=== PATIENT | female | born 1990 | race Caucasian/White ===

== ENCOUNTER 2019-06-05 18:53 | Inpatient (IN) | payer OTHER, MEDICAID, SELFPAY ==
[2019-06-05] MEDS: NIFEdipine 10 MG CAPSULE PO ×4 (20:10→21:10)
[2019-06-05 20:58] LABS: Add Manual Diff / Slide Review NO; Basophils Absolute Auto 0 /uL (0-100); Basophils Percent Auto 0.3 % (0-2); Eosinophils Absolute Auto 100 /uL (0-450); Hematocrit 36.9 % (36-46); Hemoglobin 12.7 g/dL (12.0-16.0); Lymphocytes Absolute Auto 2500 /uL (1100-4500); Lymphocytes Percent Auto 21.2 % (25-40); Mean Corpuscular HGB Conc 34.4 % (30-36); Mean Corpuscular Hemoglobin 30.1 PG (26-34); Mean Corpuscular Volume 87.6 fL (80-100); Monocytes Absolute Auto 800 /uL (0-900); Monocytes Percent Auto 6.5 % (3-14); Neutrophils Absolute Auto 8500 /uL (1500-7000); Platelet Count 149 X10^3/uL (150-400); Red Blood Cell Count 4.21 X10^6/uL (4.0-5.2); Red Cell Distribution Width 12.3 % (11.6-14.8)
[2019-06-05 21:10] LABS: Alanine Aminotransferase 22 IU/L (9-52); Albumin 3.6 g/dL (3.5-5.0); Alkaline Phosphatase 143 U/L (38-126); Aspartate Aminotransferase 25 IU/L (14-36); BUN Creatinine Ratio 18.6 (6-22); Bilirubin Total 0.2 mg/dL (0.2-1.3); Blood Urea Nitrogen 13 mg/dL (7-17); Calcium 9.1 mg/dL (8.4-10.2); Carbon Dioxide 28 mmol/L (22-32); Chloride 101 mmol/L (98-107); Estimated Glomerular Filt Rate > 60.0 mL/min (>60); Globulin 3.7 g/dL (1.7-4.1); Glucose 64 mg/dL (70-100); HEMOLYSIS < 15 (0-50); Potassium 4.2 mmol/L (3.4-5.1); Sodium 136 mmol/L (137-145); Total Protein 7.3 g/dL (6.3-8.2)
[2019-06-05] MEDS: ZOLPIDEM 5 MG TABLET PO (22:22)
[2019-06-05 22:26] LABS: Urine Amphetamines Negative (Negative); Urine Barbiturates Negative (Negative); Urine Benzodiazepines Negative (Negative); Urine Cocaine Negative (Negative); Urine MDMA Negative (Negative); Urine Methadone Positive (Negative); Urine Methamphetamines Negative (Negative); Urine Morphine/Opi cutoff 2000 Negative (Negative); Urine Oxycodone Negative (Negative); Urine Phencyclidine Negative (Negative); Urine Tetrahydrocannabinol Negative (Negative); Urine Tricyclic Antidepressant Negative (Negative)
[2019-06-06] VITALS (7 sets, daily range): BP systolic 103–129; BP diastolic 62–77; PULSE 93–109; RESP 11–22; TEMP 36.5–37.6; O2SAT 93–97
[2019-06-06] MEDS: BETAMETHASONE 30 MG/5 ML MDV 12 MG IM (06:34)
[2019-06-06] MEDS: TERBUTALINE 1 MG/ML VIAL 0.25 MG SUBCUT (06:35)
[2019-06-06] MEDS: MORPHINE 10 MG/ML INJ IM (06:50)
--- NOTE | 2019-06-06 07:13 | P.HPOB_ITS ---
OB HPI Date/Time Date of admission: 06/06/19 Date Patient Seen: 06/06/19 Time Patient Seen: 07:12 History of Present Condition Chief complaint: Obs : 2 Para: 1 Estimated Date of Delivery: 08/02/19 Estimated Gestational Age (weeks): 31 Narrative: Jaqui Kerns is a 29 year old female two para one para one addicted on methadone. Patient had one visit in November which time an SANTIAGO was established by 1st trimester ultrasound as being the 02 of August. Patient is had perhaps one additional visit at the [facility] in [place] and one visit at the methadone clinic for the [facility]. The patient has relapsed and is also now on heroin. The patient presented with contractions and was admitted for evaluation. The position confirmed by ultrasound is a breech presentation. Initial examination showed the patient to be closed and posterior. The patient then awoke with a bloody discharge. Indications Operative indications ( section): malpresentation (Breech presentation) Other reason(s) for admission: Heroin addiction History of Present care: none Dating criteria: LMP confirmed by 1st trimester US Ultrasounds: normal 1st trimester US and normal mid trimester US Obstetrical complications: labor Medical complications: other (Drug addiction) Narrative: Patient is a heroin addict on off suboxone and methadone therapy. She has recently relapsed and is back on her own Prior (ies) History: Premature labor and premature delivery of [facility] because of drug use Evaluation Evaluation Laboratory results: Laboratory Tests 06/05/19 06/05/19 06/05/19 20:30 20:50 20:50 WBC 12.0 H RBC 4.21 Hgb 12.7 Hct 36.9 MCV 87.6 MCH 30.1 MCHC 34.4 RDW 12.3 Plt Count 149 L Neut % (Auto) 71.0 Lymph % (Auto) 21.2 L [place] % (Auto) 6.5 Eos % (Auto) 1.0 L Baso % (Auto) 0.3 Neut # (Auto) 8500 H Lymph # (Auto) 2500 [place] # (Auto) 800 Eos # (Auto) 100 Baso # (Auto) 0 Sodium 136 L Potassium 4.2 Chloride 101 Carbon Dioxide 28 BUN 13 Creatinine 0.70 Estimated GFR > 60.0 BUN/Creatinine Ratio 18.6 Glucose 64 L Calcium 9.1 Total Bilirubin 0.2 AST 25 ALT 22 Alkaline Phosphatase 143 H Total Protein 7.3 Albumin 3.6 Globulin 3.7 Albumin/Globulin Ratio 1.0 Urine Opiates Screen Negative Ur Oxycodone Screen Negative Urine Methadone Screen Positive H Ur Barbiturates Screen Negative U Tricyclic Antidepress Negative Ur Phencyclidine Scrn Negative Ur Amphetamines Screen Negative U Methamphetamines Scrn Negative Ur MDMA Scrn (Ecstasy) Negative U Benzodiazepines Scrn Negative Urine Cocaine Screen Negative U Marijuana (THC) Screen Negative Review of Systems Review of Systems All systems reviewed & are unremarkable except as noted in HPI and below Exam Const General: cooperative and healthy appearing [facility] Head: normal to inspection Ears: hearing grossly normal bilaterally Nose: external nose normal Face and sinus: normal facial exam Mouth: oral mucosae normal, lip normal, tongue normal and moist mucous membranes Teeth and gingiva: dentition normal Throat: posterior oropharynx normal Eyes General: appearance normal, both eyes and all related structures Neck Neck: normal visual inspection and full ROM Chest Chest: normal inspection of the chest and normal palpation of entire chest wall Breast inspection: normal inspection of the breasts and normal inspection of the axillae Breast Palpation: normal palpation of the breasts and normal palpation of the axillae Resp Effort & Inspection: normal respiratory effort Auscultation: clear to auscultation bilaterally Cardio Palpation: normal PMI Rate: regular rate Rhythm: regular rhythm Heart Sounds: S1 normal and S2 normal GI Inspection: normal to inspection Palpation: soft and no hepatosplenomegaly Percussion: normal to percussion Auscultation: normal bowel sounds OB/External & Speculum: external exam normal and bleeding Manual OB Exam: dilated (Bulging membranes), effaced fully and station high Presentation: double footling breech Estimated Weight (lbs): 3 Back/Spine/Pelvis Thoracic/Lumbar Spine: thoracic and lumbar spine normal to inspection Skin General: no rashes or lesions noted Neuro General: alert, oriented x3, tone normal and moves all extremities Cognition: normal cognition Speech: speech normal Gait: normal gait Motor: muscle tone normal throughout Sensory Exam: no sensory deficits noted Extrem General: normal to inspection, normal exam except as noted and other (Limited IV access secondary to vein scarring secondary to drug) Psych Appearance: grossly normal and well kempt Mental Status: mental status grossly normal Speech and Movement: speech and movement normal Objective Labs Result Diagrams: 06/05/19 20:50 07/12/19 20:50 Labs: Laboratory Results - last 24 hr 06/05/19 06/05/19 06/05/19 20:30 20:50 20:50 WBC 12.0 H RBC 4.21 Hgb 12.7 Hct 36.9 MCV 87.6 MCH 30.1 MCHC 34.4 RDW 12.3 Plt Count 149 L Neut % (Auto) 71.0 Lymph % (Auto) 21.2 L [place] % (Auto) 6.5 Eos % (Auto) 1.0 L Baso % (Auto) 0.3 Neut # (Auto) 8500 H Lymph # (Auto) 2500 [place] # (Auto) 800 Eos # (Auto) 100 Baso # (Auto) 0 Sodium 136 L Potassium 4.2 Chloride 101 Carbon Dioxide 28 BUN 13 Creatinine 0.70 Estimated GFR > 60.0 BUN/Creatinine Ratio 18.6 Glucose 64 L Calcium 9.1 Total Bilirubin 0.2 AST 25 ALT 22 Alkaline Phosphatase 143 H Total Protein 7.3 Albumin 3.6 Globulin 3.7 Albumin/Globulin Ratio 1.0 Urine Opiates Screen Negative Ur Oxycodone Screen Negative Urine Methadone Screen Positive H Ur Barbiturates Screen Negative U Tricyclic Antidepress Negative Ur Phencyclidine Scrn Negative Ur Amphetamines Screen Negative U Methamphetamines Scrn Negative Ur MDMA Scrn (Ecstasy) Negative U Benzodiazepines Scrn Negative Urine Cocaine Screen Negative U Marijuana (THC) Screen Negative Assessment and Plan Assessment and Plan Assessment and Plan narrative: 31 week intrauterine Heroin addiction Active labor with bulging membranes [place] breech presentation Plan: Transfer team from [facility] - Primary section Comment: The patient is received nifedipine protocol. There was no IV access. Patient received subcu terbutaline. Patient received IM betamethasone. Anesthesiologist was called place an IV.
[2019-06-06] MEDS: LACTATED RINGERS 1,000 ML 1000 ML IV (08:00)
[2019-06-06] MEDS: METHADONE 10 MG TABLET 145 MG PO (08:03)
[2019-06-06] MEDS: MAGNESIUM SULFATE 4 GM/100 ML PIGGYBACK IV (08:10)
[2019-06-06] MEDS: LACTATED RINGERS 1,000 ML 125 ML IV (08:39)
[2019-06-06] MEDS: CEFOTETAN 2 GM/50 ML PIGGYBACK IV (08:40)
[2019-06-06 08:48] LABS: Add Manual Diff / Slide Review NO; Basophils Absolute Auto 0 /uL (0-100); Basophils Percent Auto 0.1 % (0-2); Eosinophils Absolute Auto 0 /uL (0-450); Eosinophils Percent Auto 0.1 % (2-4); Hematocrit 34.8 % (36-46); Hemoglobin 11.9 g/dL (12.0-16.0); Lymphocytes Absolute Auto 1000 /uL (1100-4500); Lymphocytes Percent Auto 7.7 % (25-40); Mean Corpuscular HGB Conc 34.2 % (30-36); Mean Corpuscular Volume 87.6 fL (80-100); Monocytes Absolute Auto 300 /uL (0-900); Monocytes Percent Auto 2.2 % (3-14); Neutrophils Absolute Auto 11900 /uL (1500-7000); Neutrophils Percent Auto 89.9 % (50-75); Platelet Count 110 X10^3/uL (150-400); Red Blood Cell Count 3.97 X10^6/uL (4.0-5.2); Red Cell Distribution Width 12.3 % (11.6-14.8); White Blood Cell Count 13.2 X10^3/uL (4.5-11.0)
[2019-06-06 09:41] LABS: Hepatitis B Surface Antigen NEGATIVE s/c (NEGATIVE); Rubella Antibody IgG 12.8 IU/mL (>15)
--- NOTE | 2019-06-06 09:44 | SUR.OPER ---
Supine on padded OR bed, head on pillow, arms secured on padded arm boards at <90 degrees abduction, legs uncrossed, safety belt at thigh, tape over blanket over lower legs.
--- NOTE | 2019-06-06 10:09 | PM.GYNOP.1 ---
Operative Date/Time/Diagnoses Date of procedure: 06/06/19 Time of procedure: 10:09 Pre-op diagnosis: 31 week intrauterine Premature labor Breech presentation History of prior section Post-op diagnosis: same Procedure: Procedures Operation Date: 06/06/19 07:35 <No data on this case meets the specified criteria> Indications: 31 week intrauterine Breech presentation Premature labor History of prior section Surgeon: Kuldip Ngo Client Care Representative: Yelena Addison Anesthesia Type: Spinal Operative Notes Findings: Ayo breech presentation Evidence of abruption Membranes intact Closure Type: primary Specimen(s): none Estimated blood loss (mL): 500 Blood products transfused: none Procedure in detail: The patient was placed supine upon the operating table and draped repaired in the usual fashion. Transverse incision was made through the old scar. The subcutaneous tissue was incised to the fascia. The fascia was incised with a sharp knife transversely in each direction. The median raphe was incised. This was widened by blunt finger dissection. Peritoneum was picked up and incised and and widened laterally.. Bladder blade was set in place. The peritoneum over the lower uterine segment was picked up and incised laterally. The bladder was taken down and the bladder blade replaced. Transverse scoring incision was made across the lower uterine segment and perforating incision was made centrally. Large numbers of blood clots were obtained at this time. The membranes were intact. 2 ft were presenting. These were grasped the membranes were ruptured. The was delivered to the umbilicus. The arms were swept down. The head however was trapped in the upper segment of the uterus. An approximately 6 cm long T incision was then made. And the head was delivered. The baby was delivered to the resuscitation team from [facility]. Cord blood was obtained. Cord gases unfortunately were not obtained. The placenta was delivered manually without difficulty. Cord had three vessels. All membranes are massage from the endometrial cavity. The 6 cm vertical incision was closed in two layer technique with 1. Chromic suture. The uterine incision was then closed using a two layer technique an imbricating fashion with 1. Chromic suture. No bleeding points were seen. Visceral peritoneum was closed with running two 0 chromic suture. Tubes and ovaries appeared to be normal. The parietal perineum was closed with running two 0 chromic suture. The area was copiously irrigated. The fascia was closed with interrupted 1. Vicryl sutures on each pyramidalis muscle. Fascia was then closed with two 1. Vicryl sutures. Subcutaneous tissue was copiously irrigated. The subcutaneous tissue was closed in two layers. The 1st layer was closed with interrupted three 0 Vicryl suture. 2nd layer was closed with a running three 0 Vicryl suture in a horizontal mattress stitch. The skin was further approximated with Steri-Strips. At the end of the procedure the wound was dry. The urine was clear. Patient was taken to the recovery room in satisfactory condition. Complications: none Post-operative Condition: stable Disposition: PACU Plan for aftercare: Labor and delivery
--- NOTE | 2019-06-06 10:17 | SUR.OPER ---
Pt arrived with paris in place. NICU team arranged for . Time of was 0920. FHT were 120's. Male born; oxygen saturation in the 80's from time of to departure from OR. NICU team bagging baby.
--- NOTE | 2019-06-06 10:41 | SUR.PHASEI ---
PT TO CENTER,HAND OFF OF CARE TO ROSEMARY GUAJARDO
[2019-06-06] MEDS: LACTATED RINGERS 1,000 ML 100 ML IV ×2 (12:00→20:26)
[2019-06-06] MEDS: OXYCODONE/ACETAMINOPHEN 5/325 TABLET 2 TAB PO (20:23)
[2019-06-06] MEDS: KETOROLAC 30 MG/ML VIAL IV (20:24)
[2019-06-07] MEDS: KETOROLAC 30 MG/ML VIAL IV ×3 (02:07→14:10)
[2019-06-07 05:34] LABS: Hematocrit 31.2 % (36-46); Hemoglobin 10.9 g/dL (12.0-16.0)
--- NOTE | 2019-06-07 09:13 | PM.OBPN.1 ---
Subjective - OB Patient comments: no complaints and pain well controlled [place] baby status: doing well [place] feeding status: other (CPS baby) Narrative: Patient status post emergency section for premature labor history of prior section, breech presentation, and abruption. The transport team was here at time of section and the baby was transported to the [place] NICU. We have not checked on the condition of the baby this morning. Mother is doing well. She remains afebrile stable vital signs. Her IV is been removed. Her Bobo catheter has been removed and she is voiding. She is taking p.o. well. Lochia is moderate. She is ambulating well. Date Patient Seen: 06/07/19 Time Patient Seen: 09:14 Interval history: Please see above Exam Vital Signs (past 8 hours): Oxygen Delivery Method Room Air Narrative Exam Narrative: Fundus is U minus four Incision looks fine Lochia scant Objective Labs Result Diagrams: 06/07/19 05:09 06/05/19 20:50 Labs: Laboratory Results - last 24 hr 06/06/19 06/06/19 06/07/19 08:15 08:15 05:09 Hgb 10.9 L Hct 31.2 L Hep Bs Antigen Negative Rubella Antibody 12.8 L Blood Type O Positive Antibody Screen Negative Assessment & Plan Plan day: 1 plan OB: routine postop care Comments: Doing well Time Spent With Patient Total time spent is greater than 50% in coordination of care (as documented) at patient's floor/unit and/or counseling patient: less than 15 minutes
[2019-06-07] MEDS: METHADONE 10 MG TABLET 145 MG PO (09:39)
[2019-06-07 10:20] LABS: Add Manual Diff / Slide Review NO; Basophils Absolute Auto 100 /uL (0-100); Basophils Percent Auto 0.4 % (0-2); Eosinophils Absolute Auto 0 /uL (0-450); Eosinophils Percent Auto 0.1 % (2-4); Hematocrit 33.5 % (36-46); Hemoglobin 11.4 g/dL (12.0-16.0); Lymphocytes Absolute Auto 1700 /uL (1100-4500); Lymphocytes Percent Auto 10.5 % (25-40); Mean Corpuscular HGB Conc 34.1 % (30-36); Mean Corpuscular Hemoglobin 30.2 PG (26-34); Mean Corpuscular Volume 88.5 fL (80-100); Monocytes Absolute Auto 900 /uL (0-900); Monocytes Percent Auto 5.4 % (3-14); Neutrophils Absolute Auto 13900 /uL (1500-7000); Neutrophils Percent Auto 83.6 % (50-75); Platelet Count 157 X10^3/uL (150-400); Red Blood Cell Count 3.78 X10^6/uL (4.0-5.2); Red Cell Distribution Width 12.7 % (11.6-14.8); White Blood Cell Count 16.6 X10^3/uL (4.5-11.0)
--- NOTE | 2019-06-07 14:39 | CM.SWNOTE ---
Social Work Note, Brief Assessment: Reviewed chart, mom comes in w/early labor Saturday 7.13.19, c section performed yesterday and baby shipped to [facility] NICU d/t breech presentation, minimal care, current methadone use w/ admitted relapse now heroin use. Met w/mom Jaqui this afternoon, explained SW role. Mom is hopeful she will be able to take baby home from [place] when medically cleared. FOB is now at [facility]. Mom reports she goes to [facility] to get her daily dose of Methadone and sees a counselor there weekly. She plans to also attend classes because she is not working currently. Jaqui understands that she will need to work w/the social work team at [facility] to discuss safe planning for baby. When asked why baby had to get shipped? Jaqui says she was premature. Jaqui denies heroin use and states her last use was one time and it was in November 2018. 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 She feels she has good access to food, clothing, transportation and knows how to access [place]. She denies the need for resources from this [facility]. Jaqui has a 14 month old, Lencho, in CPS custody/foster care that she sees every /, she hopes to get her back soon. CPS SWer is Gertrude Valadez P# [phone]. According to chart review, mom and baby were shipped from to for delivery of Lencho. Updated Dr Ngo briefly w/ above. P: DC home w/ FOB upon medical clearance, likely Saturday. F/u w/[facility] SW team re: safe DC planning w/CPS for new baby. Milagros Tolbert, PARTITION NOTCHER
--- NOTE | 2019-06-08 07:39 | P.DS_ITS ---
Discharge Providers Date of admission: 06/05/19 18:53 Discharge Date: 06/08/19 Consults: 06/06/19 20:00 Consult to Digital Design Engineer Routine Comment: Discharge provider: Kuldip Ngo MD Summary Date Patient Seen: 06/08/19 Time Patient Seen: 07:36 Procedures: Spinal anesthesia Primary low segment section current type Hospital Course: Patient is a 29-year-old three para one AB1 who presented at 31 weeks of in active labor. Patient had a prior section and patient presented as a breech presentation. Patient has drug addicted on methadone and using heroin. transport services were called and on arrival the patient was taken to the operating room and underwent a repeat low segment section. She was delivered of a 4 lb 8 oz male infant who was intubated but who has subsequently done well. The section was uneventful. The estimated blood loss was 500 cc. Post delivery the patient has done well. She has been maintained on methadone. She remains afebrile stable vital signs and has been progressively element and ambulated. She is discharged home for follow-up in two weeks. Peripartum Data Delivery Method: Section complications: none Status at Discharge Cognitive/behavioral status at discharge: oriented Functional status at discharge: independent ambulation Overall status at discharge: patient is progressing back to baseline Time Spent with Patient Total time spent providing and/or coordinating discharge services: Less than 30 minutes Objective Labs Result Diagrams: 06/07/19 09:55 06/05/19 20:50 Labs: Laboratory Results - last 24 hr 06/07/19 09:55 WBC 16.6 H RBC 3.78 L Hgb 11.4 L Hct 33.5 L MCV 88.5 MCH 30.2 MCHC 34.1 RDW 12.7 Plt Count 157 Neut % (Auto) 83.6 H Lymph % (Auto) 10.5 L [place] % (Auto) 5.4 Eos % (Auto) 0.1 L Baso % (Auto) 0.4 Neut # (Auto) 46328 H Lymph # (Auto) 1700 [place] # (Auto) 900 Eos # (Auto) 0 Baso # (Auto) 100 Exam Vital Signs (past 8 hours): Oxygen Delivery Method Room Air Narrative Exam Narrative: Fundus U minus four Incision looks fine. Lochia scant Discharge Plan Discharge Plan Patient Disposition: Home Discharge Med Rec/Prescriptions Prescriptions: New ibuprofen 600 mg Tablet 600 mg PO Q6HR PRN (Reason: As Needed For Fever/Mild Pain) Qty: 20 RF: 0 Follow up/Referrals: Kuldip Ngo MD [Physician] - 06/22/19 Provider Discharge Instructions Diet: Diet as Tolerated Activity: Up ad leila, limit stair Skin/Wound/Dressing Care Report to your healthcare provider any signs of infection, such as:: chills, fever, increased pain, unusual drainage and unusual redness Discharge Data Attending Provider: Kuldip Ngo Admit Date/Time: 06/05/19 18:53
[2019-06-08] MEDS: METHADONE 10 MG TABLET 145 MG PO (09:04)
[2019-06-08 10:18] VITALS: BP 110/71; PULSE 80; RESP 17; TEMP 37.1
[2019-06-09 20:53] LABS: RPR Screen Nonreactive (Nonreactive)
== END 2019-06-08 11:50 | disposition home or self-care (01) | DRG 540 ==
PROC: 10D00Z1 Extraction of Products of Conception, Low, Open Approach (ICD-10-PCS; CPT 59514; principal; 2019-06-06 07:35)
DX: O99.324 Drug use complicating childbirth (principal); F11.229 Opioid dependence with intoxication, unspecified; O34.219 Maternal care for unspecified type scar from previous cesarean delivery; Z37.0 Single live birth; Z3A.31 31 weeks gestation of pregnancy; O32.8XX0 Maternal care for other malpresentation of fetus, not applicable or unspecified
CPT/HCPCS: 36415; 59050; 59514; 80053; 80055; 80305; 85014; 85018; 85025; 86850; 86900; 86901; 87522; 99222; 99238; G0379; J0702; J1885; J2270; J2274; J2405; J2590; J3475

== ENCOUNTER → 2019-10-13 13:04 | Outpatient (CLI) | payer OTHER, MEDICAID, SELFPAY ==
--- NOTE | 2019-10-13 13:06 | DI.RAD.S_ITS ---
PROCEDURE: XR CHEST 2V INDICATIONS: vapes, productive cough, r/o pneumonia/bronchitis TECHNIQUE: 2 views of the chest were acquired. COMPARISON: [facility], , CHEST 1 VIEW, 03/05/2018, 11:46. FINDINGS: Surgical changes and devices: None. Lungs and pleura: Lungs are clear. Resolution of previous large right pleural effusion. Mediastinum: Mediastinal contours are normal. Heart size is normal. Bones and chest wall: No suspicious bony abnormalities. Soft tissues appear unremarkable. IMPRESSION: No evidence acute pulmonary process. Dictated by: Aj Amezquita M.D. on 10/13/2019 at 14:21 Approved by: Aj Amezquita M.D. on 10/13/2019 at 14:21
== END ==
PROVIDERS: Visit Provider Physician Assistant
DX: J06.9 Acute upper respiratory infection, unspecified (principal); R05 Cough; F17.290 Nicotine dependence, other tobacco product, uncomplicated
CPT/HCPCS: 71046

== ENCOUNTER → 2019-10-29 13:00 | Outpatient (CLI) | payer OTHER, MEDICAID, SELFPAY ==
--- NOTE | 2019-10-29 13:03 | DI.RAD.S_ITS ---
PROCEDURE: XR CHEST 2V INDICATIONS: suspect R sided effusion TECHNIQUE: 2 views of the chest were acquired. COMPARISON: [facility], CHEST 1 VIEW, 03/05/2018, 11:46. [facility], CHEST 1 VIEW, 03/04/2018, 22:20. [facility], , XR CHEST 2V, 10/13/2019, 13:52. FINDINGS: Surgical changes and devices: None. Lungs and pleura: Blunting of the right costophrenic angle may be secondary to pleural scarring or trace pleural effusion. Lungs are clear. No pleural effusions or pneumothorax. Mediastinum: Mediastinal contours are normal. Heart size is normal. Bones and chest wall: No suspicious bony abnormalities. Soft tissues appear unremarkable. Previous partial resection of the posterior right fifth rib. IMPRESSION: Right pleural scarring or trace pleural effusion. Dictated by: Melinda Guardado M.D. on 10/29/2019 at 14:39 Approved by: Melinda Guardado M.D. on 10/29/2019 at 14:40
[2019-10-29 13:55] LABS: Add Manual Diff / Slide Review NO; Basophils Absolute Auto 0 /uL (0-100); Basophils Percent Auto 0.3 % (0-2); Eosinophils Absolute Auto 100 /uL (0-450); Eosinophils Percent Auto 1.3 % (2-4); Hematocrit 36.3 % (36-46); Hemoglobin 12.3 g/dL (12.0-16.0); Lymphocytes Absolute Auto 2000 /uL (1100-4500); Lymphocytes Percent Auto 29.1 % (25-40); Mean Corpuscular Hemoglobin 27.2 PG (26-34); Monocytes Absolute Auto 400 /uL (0-900); Monocytes Percent Auto 5.9 % (3-14); Neutrophils Absolute Auto 4400 /uL (1500-7000); Neutrophils Percent Auto 63.4 % (50-75); Platelet Count 154 X10^3/uL (150-400); Red Blood Cell Count 4.53 X10^6/uL (4.0-5.2); Red Cell Distribution Width 16.6 % (11.6-14.8); White Blood Cell Count 6.9 X10^3/uL (4.5-11.0)
[2019-10-29 14:06] LABS: D Dimer 675 ng/mL (<230)
[2019-10-29 14:27] LABS: B Type Natriuretic Peptide < 100 (<100)
== END ==
PROVIDERS: Visit Provider Physician Assistant
DX: R05 Cough (principal)
CPT/HCPCS: 36415; 71046; 83880; 85025; 85379

== ENCOUNTER 2019-10-29 13:41 | Emergency (ER) | payer OTHER, MEDICAID, SELFPAY ==
[2019-10-29 13:43] VITALS: BP 115/68; PULSE 70; RESP 12; TEMP 36.6; O2SAT 97; BMI 39.6
[2019-10-29 15:00] LABS: HCG Quantitative /Beta subunit 69361 mIU/mL
--- NOTE | 2019-10-29 16:09 | PC.NURSE ---
No Answer in waiting room @ 1600
== END 2019-10-29 16:00 | disposition left against medical advice (07) ==
PROVIDERS: Internal Medicine; Emergency Provider Emergency Medicine
DX: O99.89 Other specified diseases and conditions complicating pregnancy, childbirth and the puerperium (principal); R10.2 Pelvic and perineal pain; R05 Cough
CPT/HCPCS: 36415; 71046; 83880; 84702; 85025; 85379; 99282

== ENCOUNTER → 2019-11-02 08:59 | Outpatient (CLI) | payer OTHER, MEDICAID, SELFPAY ==
--- NOTE | 2019-11-02 09:00 | DI.US.S_ITS ---
PROCEDURE: US PERIPH VENOUS LOW EXTREM BI INDICATIONS: ELEVATED D DIMER W/CHRONIC COUGH TECHNIQUE: Real-time imaging, as well as color and pulse Doppler interrogation, were performed of the deep veins of both legs from the inguinal ligament to the popliteal fossa. COMPARISON: None. FINDINGS: Right: The common femoral, femoral and popliteal veins are normally compressible, and free of intraluminal thrombus. Color and pulse Doppler demonstrate normal phasic intravascular flow. There is normal augmentation response to distal compression maneuver. Left: The common femoral, femoral and popliteal veins are normally compressible, and free of intraluminal thrombus. Color and pulse Doppler demonstrate normal phasic intravascular flow. There is normal augmentation response to distal compression maneuver. IMPRESSION: No evidence of deep vein thrombosis of the bilateral lower extremities. Dictated by: Juaquin Barajas M.D. on 11/02/2019 at 12:04 Approved by: Juaquin Barajas M.D. on 11/02/2019 at 12:05
== END ==
PROVIDERS: Visit Provider Physician Assistant
DX: R05 Cough (principal); R79.89 Other specified abnormal findings of blood chemistry
CPT/HCPCS: 93970

== ENCOUNTER 2019-11-05 09:21 | Emergency (ER) | payer OTHER, MEDICAID, SELFPAY ==
[2019-11-05 09:30] VITALS: BP 123/78; PULSE 76; RESP 16; TEMP 36.5; O2SAT 97; BMI 37.9
--- NOTE | 2019-11-05 09:39 | ED.PREGNANCY ---
HPI - General Chief complaint: Urogenital-Female Stated complaint: 13 WEEKS,CRAMPING OFF AND ON Time Seen by Provider: 11/05/19 09:25 Source: patient Mode of arrival: Ambulatory Limitations: no limitations History of Present Illness HPI Narrative: This is a 29-year-old female comes to the emergency department with complaint of cramping during . Patient states she is about 13 weeks. She states that she did have an ultrasound at 6 weeks. She states she is following with Dr. Carrillo. Patient denies any vaginal bleeding. She states no fluid leakage. No dysuria, urgency or frequency. Patient denies any fevers or chills she denies any other upper respiratory symptoms. No chest pain shortness of breath, she has had some mild nausea but no vomiting. She states this is her 5th , she has 2 living children, had 1 and 1 miscarriage. Patient does have a history of drug use in the past according to prior delivery records. Related Data Home Medications Medication Instructions Recorded Confirmed methadone PO 09/23/19 11/02/19 prenat.vits,rashmi,giv-jrsx-cwebu 1 tab PO DAILY 10/29/19 11/02/19 Previous Rx's Medication Instructions Recorded albuterol sulfate 90 mcg/actuation 2 puff INHALATION Q4-6H PRN #8.5 09/23/19 aerosol inhaler gram qhwailjs-lutfgtgvc-fccfnyvns 3.5 4 drop EAR-LEFT TID 7 Days #10 ml 11/02/19 mg-10,000 unit/mL-1 % ear drops,susp cephalexin [Keflex] 500 mg PO BID #10 cap 11/05/19 Allergies Allergy/AdvReac Type Severity Reaction Status Date / Time No Known Drug Allergies Allergy Verified 11/02/19 08:30 Review of Systems Review of Systems ROS Unobtainable: All systems reviewed & are unremarkable except as noted in HPI and below PMFSH - Past Medical History Medical history: Reports other (drug abuse) Surgical history: Reports Exam Narrative Exam Narrative: GENERAL: Alert and oriented x three, obese female in no acute distress. HEENT: Head normocephalic, atraumatic, EOMI, pupils reactive, face symmetric, moist mucous membranes NECK: Supple, full range of motion CARDIOVASCULAR: Regular rate and rhythm without murmurs, rubs or gallops. RESPIRATORY: Breath sounds equal bilaterally, no wheezes rales or rhonchi. ABDOMEN: Soft, nontender. Normoactive bowel sounds all 4 quadrants. No guarding or rebound, rigidity, no mass : No CVA tenderness, unable to palpate uterus EXTREMITIES: Normal range of motion, no clubbing or edema. Neurovascularly intact NEUROLOGICAL: Cranial nerves II through XII grossly intact. Moving all extremities SKIN: Warm, dry, no petechiae, no rashes or lesions. Initial Vital Signs Initial Vital Signs: Vital Signs Temperature 97.7 F 11/05/19 09:30 Pulse Rate 76 11/05/19 09:30 Respiratory Rate 16 11/05/19 09:30 Blood Pressure 123/78 11/05/19 09:30 Pulse Oximetry 97 11/05/19 09:30 Course Orders Ordered: ED Orders 11/05/19 10:58 Urine Culture Stat Urine Microscopic Stat Vital Signs Vital signs: Vital Signs - 8 hr 11/05/19 11:05 Pulse Rate 98 H Respiratory Rate 16 Blood Pressure 126/66 Pulse Oximetry 100 MDM - OB/Uterine Contractions Lab Data Labs: Lab Results 11/05/19 Range/Units 10:58 Urine RBC None seen (0-5/HPF) Urine WBC 10-30/hpf H (0-5/HPF) Ur Squamous Epith Cells 1-5 /hpf (0-5/HPF) Urine Bacteria Many (>30) H (None) Ur Culture Indicated? Specimen cultured Urine Dip Bedside Urine Glucose Negative Bedside Urine Bilirubin - Negative Bedside Urine Ketone - Negative Urine Specific [place] 1.015 Bedside Urine Occult Blood - Negative Bedside Urine pH 6.0 Bedside Urine Protein +/- 15 Bedside Urine Urobilinogen 1+ 2mg Bedside Urine Nitrite - Negative Bedside Urine Leukocytes +++ 500 Esterase Imaging Data OB US: Radiologist's impression: [address] [address] Ultrasound Report Signed Patient: Jaqui Kerns [facility]#: [id number] : 1990Acct:[id number] Age/Sex: 29 / FDate of Service: 11/05/19 Loc: ED Accession Number: [id number] Procedure: US OB <= 14 weeks fetus Ordering Provider: Mili Noble D.O. PROCEDURE: US OB <= 14 WEEKS FETUS INDICATIONS: CRAMPING, 13 WEEKS OUTSIDE/PRIOR DATING DATA: Last menstrual period (LMP): 08/03/19. LMP-based estimated date of delivery (SANTIAGO): 05/09/20. First dating scan (date and location): 11/05/19. Estimated date of delivery (SANTIAGO) from first dating scan: 05/11/20. TECHNIQUE: Real-time scanning was performed of the fetus and maternal pelvic organs, with image documentation. Endovaginal scanning was also performed to better visualize the fetus and maternal ovaries. COMPARISON: None. FINDINGS: Embryo: A single live intrauterine is identified with heart motion detected at 149 beats per minute. A developing fetus is well visualized. The measurements are as follows: BPD: 2.2 cm, 13 weeks 4 days. HC: 8.2 cm, 13 weeks 4 days AC: 6.6 cm, 13 weeks 2 days FL: 0.8 cm, 12 weeks 2 days Composite gestational age: 13 weeks 1 day. Other: Please note that a formal anatomic survey was not performed given the early gestational age. No gross anatomic abnormalities are evident on the provided images. No evidence of a subchorionic hemorrhage is appreciated. Maternal organs: Ovaries are not enlarged. Limited images through the kidneys demonstrate no hydronephrosis. IMPRESSION: Single live intrauterine at 13 weeks 1 day (sonographic SANTIAGO 05/11/20) is concordant with the LMP due date. Dictated by: Juaquin Barajas M.D. on 11/05/2019 at 9:34 Approved by: Juaquin Barajas M.D. on 11/05/2019 at 9:37 MDM Narrative Medical decision making narrative: Patient comes with complaint of cramping at 13 weeks . She does have and HCG level from 10/29/19 that is 69,361. US ordered with patient's history of high risk pregnancies. 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 Make sure you are staying hydrated and drinking plenty of water. Continue your prenatals daily. Your urine has bacteria in it, you may have a bladder infection. Your prescription was sent to [facility] in [place]. Return to ER for fevers greater than 100.4F, new vaginal bleeding, passing out, new chest pain, shortness of breath, persistent vomiting, new or severe abdominal pain, pelvic pain or back pain or other new or concerning symptoms. Prescriptions: New cephalexin [Keflex] 500 mg capsule 500 mg PO BID Qty: 10 RF: 0 No Action methadone PO RF: 0 albuterol sulfate 90 mcg/actuation HFA aerosol inhaler 2 puff INHALATION Q4-6H PRN (Reason: bronchospasm) Qty: 8.5 RF: 0 rbsjvsdn-xuqoojclo-BJ 3.5-10,000-1 mg/mL-unit/mL-% drops,suspension 4 drop EAR-LEFT TID 7 Days Qty: 10 RF: 0 prenat.vits,rashmi,hth-algh-hizqu Tablet 1 tab PO DAILY RF: 0 Stand Alone Forms: Work Release Note
--- NOTE | 2019-11-05 10:51 | PC.NURSE ---
pt states 5 pregnancies and 2 live children.
--- NOTE | 2019-11-05 11:04 | PC.NURSE ---
Patient reports week of abd cramping no bleeding approx 12-14 weeks .
[2019-11-05 11:05] VITALS: BP 126/66; PULSE 98; RESP 16; O2SAT 100
[2019-11-05 11:08] LABS: RBC Urine None Seen (0-5/HPF)
[2019-11-05 11:29] LABS: Bacteria Urine Many (>30); Culture Indicated Urine Specimen Cultured; Squamous Epithelial Cell Urine 1-5 /HPF (0-5/HPF); WBC Urine 10-30/HPF (0-5/HPF)
== END 2019-11-05 11:06 | disposition home or self-care (01) ==
PROVIDERS: Emergency Provider Emergency Medicine
DX: O26.892 Other specified pregnancy related conditions, second trimester (principal); R10.9 Unspecified abdominal pain; R82.71 Bacteriuria; Z3A.13 13 weeks gestation of pregnancy
CPT/HCPCS: 76801; 81003; 81015; 87086; 99281; 99283

== ENCOUNTER → 2020-05-30 13:24 | Outpatient (CLI) | payer OTHER, MEDICAID, SELFPAY ==
--- NOTE | 2020-05-30 13:26 | DI.RAD.S_ITS ---
PROCEDURE: XR FOOT RT MIN 3V INDICATIONS: pain, swelling, r/o fracture TECHNIQUE: 3 views of the foot were acquired. COMPARISON: [facility], , ANKLE 3 VIEWS RIGHT, 04/03/2011, 12:48. [facility], , FOOT 3V RIGHT, 04/03/2011, 12:45. FINDINGS: Bones: No fractures or dislocations. No suspicious bony lesions. Mild degenerative changes of the tibiotalar, talonavicular, and tarsonavicular joints are present. A bipartite medial sesamoid of the great toe appears to be present. Soft tissues: No definite tibiotalar joint effusion. Achilles tendon appears normal in thickness, but is not adequately characterized on x-ray. IMPRESSION: Mild degenerative changes of the hindfoot joints. No fractures. Dictated by: Juaquin Barajas M.D. on 05/30/2020 at 13:10 Approved by: Juaquin Barajas M.D. on 05/30/2020 at 13:11
--- NOTE | 2020-05-30 13:26 | DI.RAD.S_ITS ---
PROCEDURE: XR ANKLE RT MIN 3V INDICATIONS: pain, swelling, r/o fracture TECHNIQUE: 3 views of the ankle were acquired. COMPARISON: [facility], CR, XR FOOT RT MIN 3V, 05/30/2020, 13:26. [facility], CR, ANKLE 3 VIEWS RIGHT, 04/03/2011, 12:48. FINDINGS: Bones: No fractures or dislocations. Widening of the distal tibiofibular syndesmosis is present estimated at approximately 6 mm. Otherwise, the ankle mortise alignment is within normal limits. No suspicious bony lesions. Mild degenerative changes of the tibiotalar joint have developed in the interim. There also are mild degenerative changes of the talonavicular and tarsonavicular joints. Soft tissues: No tibiotalar joint effusion. Achilles tendon appears normal in thickness, but is not adequately evaluated on x-ray. IMPRESSION: 1. No acute fractures of the right ankle. 2. Distal tibiofibular syndesmotic widening is age-indeterminate. MRI may be helpful for better evaluation. 3. Mild degenerative changes of the hindfoot joints. Dictated by: Juaquin Barajas M.D. on 05/30/2020 at 13:08 Approved by: Juaquin Barajas M.D. on 05/30/2020 at 13:10
== END ==
PROVIDERS: Referring Provider Physician Assistant; Visit Provider Physician Assistant
DX: S99.911A Unspecified injury of right ankle, initial encounter (principal); M25.571 Pain in right ankle and joints of right foot; M25.471 Effusion, right ankle; X58.XXXA Exposure to other specified factors, initial encounter
CPT/HCPCS: 73610; 73630

== ENCOUNTER → 2020-12-19 15:09 | Outpatient (CLI) | payer OTHER, MEDICAID, SELFPAY ==
[2020-12-19 15:50] LABS: COVID19 -Nasal RAPID POSITIVE (Negative)
== END ==
PROVIDERS: Visit Provider Physician Assistant
DX: U07.1 COVID-19 (principal)
CPT/HCPCS: 87635

== ENCOUNTER → 2022-01-09 18:45 | Outpatient (CLI) | payer OTHER, MEDICAID, SELFPAY ==
[2022-01-09 21:05] LABS: COVID19 -Nasal RAPID Negative (Negative)
== END ==
PROVIDERS: Visit Provider Student in an Organized Health Care Education/Training Program
DX: Z20.822 Contact with and (suspected) exposure to COVID-19 (principal)
CPT/HCPCS: 87635